=== PATIENT | male | born 1970 ===

== ENCOUNTER 2019-05-07 13:03 | Emergency (ER) | payer BC ==
[~2019-05-07] VITALS: Ht 182.9 cm; Wt 101.6 kg
[~2019-05-07 13:03] MED LIST: CRUTCH4 USE; HYDACE10B PO; NAPR500 PO
[2019-05-07] MEDS ORDERED: ATORVASTATIN CA80 MG PO (13:11)
[2019-05-07] MEDS ORDERED: TRAZ100 PO (13:11)
[2019-05-07] MEDS ORDERED: Norco 5-325 Ta1 EACH PO (13:58)
[2019-05-07] MEDS ORDERED: CRUTCH2 XX (13:58)
== END 2019-05-07 14:14 | disposition home or self-care (01) ==
LOC: ER 13:03
DX: S83.411A Sprain of medial collateral ligament of right knee, initial encounter (principal); S83.8X1A Sprain of other specified parts of right knee, initial encounter; X58.XXXA Exposure to other specified factors, initial encounter; Z79.899 Other long term (current) drug therapy; Z87.891 Personal history of nicotine dependence
CPT/HCPCS: 29505; 73562-RT; 99283-25; A9270-GY